=== PATIENT | female | born 1990 | race Caucasian/White ===

== ENCOUNTER 2017-11-08 20:28 | Emergency (ER) | payer OTHER ==
[~2017-11-08] VITALS: Ht 157.5 cm; Wt 113.4 kg
--- NOTE | ~2017-11-08 | EKG ---
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 : 1990 Requested By: Jersey Hays Order Number: [id number] MD: Solis Sanders Measurements Intervals [place] Rate: 93 P: 42 CA: 157 QRS: 62 QRSD: 128 T: 17 QT: 362 QTc: 451 Interpretive Statements Sinus rhythm Nonspecific intraventricular conduction delay Compared to ECG 10/09/2012 19:44:07 Intraventricular conduction delay now present Sinus tachycardia no longer present Electronically Signed On 11-09-2017 9:55:21 CDT by Solis Sanders [email or web address] <ELECTRONICALLY SIGNED> By: Solis Sanders MD 11/09/17 [id number] Solis Sanders MD /JONE
[~2017-11-08 20:28] MED LIST: ACETAMINOPHEN; ADVIL MIGRAINE200 MG PO; PROVENTIL HFA6.7 G1 INH; TESSALON PERLE100 MG PO; ZANTAC 150MG T150 M1 PO; ZPAK PO
[2017-11-08 23:31] LABS: ABSOLUTE NEUTROPHILS 5.2 thou/uL (1.4-8.2); BASOPHILS 1.2 % (0.0-2.0); HEMATOCRIT 38.4 % (37.0-47.0); HEMOGLOBIN 13.2 gm/dL (12.0-15.0); LYMPHOCYTES 36.8 % (24.0-44.0); MCH 30.1 pg (26.0-34.0); MCHC 34.4 g/dL (28.0-37.0); MCV 87.4 fL (80.0-100.0); MONOCYTES 7.9 % (1.0-8.0); PLATELET COUNT 293 thou/uL (150-400); POLYS 52.1 % (36.0-66.0); RDW 13.6 % (10.5-14.5)
[2017-11-08 23:37] LABS: URINE BILIRUBIN NEGATIVE (Negative); URINE BLOOD 3+ (Negative); URINE CLARITY CLEAR; URINE COLOR YELLOW; URINE GLUCOSE-RANDOM* NEGATIVE (Negative); URINE KETONES NEGATIVE (Negative); URINE LEUKOCYTES-REFLEX NEGATIVE (Negative); URINE NITRITE-REFLEX NEGATIVE (Negative); URINE PROTEIN (DIPSTICK) NEGATIVE (Negative); URINE SPECIFIC GRAVITY 1.015 (1.005-1.035); URINE UROBILINOGEN 0.2 E.U./dl (0.2-1.0)
[2017-11-08 23:39] LABS: CALCIUM 8.3 mg/dL (8.5-10.1); CREATININE 0.7 mg/dL (0.6-1.0); POTASSIUM 3.4 mmol/L (3.5-5.1)
[2017-11-08 23:44] LABS: ALBUMIN 3.2 g/dL (3.4-5.0); TOTAL BILIRUBIN 0.4 mg/dL (<0.1-1.0); TOTAL PROTEIN 7.5 g/dL (6.4-8.2)
[2017-11-08 23:49] LABS: BACTERIA-REFLEX 1-9 Few /HPF (None Seen); CASTS None Seen /LPF (None Seen); CRYSTALS None Seen /LPF (None Seen); MUCUS None Seen strn/LPF (None Seen); SQUAMOUS 0-3 Few /LPF (0-3); URINE WBC-REFLEX None Seen /HPF (0-5)
[2017-11-09] MEDS ORDERED: IBUPROFEN 600600 M1 PO (00:14)
[2017-11-09 00:40] VITALS: BP 131/76
== END 2017-11-08 20:35 | disposition home or self-care (01) ==
LOC: ER 20:28
PROVIDERS: Physician Assistant
DX: R09.1 Pleurisy (principal); R07.89 Other chest pain; R10.9 Unspecified abdominal pain; F17.210 Nicotine dependence, cigarettes, uncomplicated; J45.909 Unspecified asthma, uncomplicated; Z82.49 Family history of ischemic heart disease and other diseases of the circulatory system